=== PATIENT | female | born 1970 | race Caucasian/White ===

== ENCOUNTER 2018-12-27 23:02 | Emergency (ER) | payer BC, OTHER ==
[~2018-12-27] VITALS: Wt 85.0 kg
[~2018-12-27 23:02] MED LIST: HYDR-4011 PO
[2018-12-28] MEDS ORDERED: HYDROCODONE/APAP (5/325) TAB PO ONE (02:00)
--- NOTE | 2018-12-28 02:13 | ERD ---
ER Documentation Chief Complaint Chief Complaint states fell from bed to floor while sleeping, hit back head on wood, no ko HPI 48-year-old female presents with complaint of headache after hitting her head on a wood floor after she fell out of bed while sleeping. Patient denies any numbness or weakness. Patient states that she currently has a headache 10 out of 10 in intensity. In addition she states that her hips and thighs are hurting her as well. She is ambulatory. Patient denies any vision problems, altered mental status. ROS All systems reviewed and are negative except as per history of present illness. Medications Home Meds Active Scripts Hydrocodone/Acetaminophen ([place] 5-325 Tablet) 1 Each Tablet, 1 TAB PO Q6H PRN for PAIN, #10 TAB Prov:DAYNE COLLIER 12/28/18 Allergies Allergies: Coded Allergies: No Known Drug Allergies (Verified Allergy, Unknown, 12/27/18) PMhx/Soc Medical and Surgical Hx: pt denies Medical Hx, pt denies Surgical Hx Hx Alcohol Use: No Hx Substance Use: No Hx Tobacco Use: No Smoking Status: Never smoker FmHx Family History: No diabetes, No coronary disease, No other Physical Exam Vitals Vital Signs Date Temp Pulse Resp B/P (MAP) Pulse Ox O2 O2 Flow FiO2 Time Delivery Rate 12/28/18 98.0 60 18 110/62 99 05:09 (78) 12/27/18 98.2 81 18 138/79 98 23:24 (98) Physical Exam Const: No acute distress Head: Atraumatic Eyes: Normal Conjunctiva ENT: Normal External Ears, Nose and Mouth. Neck: Full range of motion. No meningismus. Resp: Clear to auscultation bilaterally Cardio: Regular rate and rhythm, no murmurs Abd: Soft, non tender, non distended. Normal bowel sounds Skin: No petechiae or rashes Back: No midline or flank tenderness Ext: No cyanosis, or edema Neur: Awake and alert. a&o x3 Psych: Normal Mood and Affect lower Extremity - bilateral: Skin: No laceration Compartments: Soft Motor: Full active range of motion hip/knee/ankle/foot Sensation: Intact to light touch FDWS/MF/LF/P surfaces. Bones: No bony deformity noted. Joints: No effusion or laxity Pulses/Perfusion: 2+ DP, Capillary refill < 2 seconds neuro: M/S: Alert and oriented Face: EOMI, face and pharynx with normal sensation and function Motor: Normal strength throughout Sensation: Normal sensation throughout Speech: Normal Cerebel: Normal coordination Normal gait Normal finger to nose DTR: 2+ and symmetric upper/lower extremities Results 24 hrs Laboratory Tests Test 12/28/18 02:05 POC Beta HCG, Qualitative NEGATIVE Current Medications Medications Dose Sig/Viviana Start Time Status Last (Trade) Ordered Route PRN Stop Time Admin Dose Reason Admin 1 tab ONCE ONCE 12/28/18 DC 12/28/18 Acetaminophen PO 02:00 02:22 / 12/28/18 02:01 Hydrocodone Bitart ([place] (5/325)) Procedures/MDM DIAGNOSTIC IMAGING REPORT Patient: IRENA BERNSTEIN : 1970 Age: 48 Sex: F MR #: [id number] DOS: 12/28/18 0149 Ordering MD: DAYNE COLLIER Location: [facility] Room/Bed: PROCEDURE: CT Brain without contrast. CLINICAL INDICATION: Trauma TECHNIQUE: CT scan of the brain was performed on a multidetector high-re solution CT scan. Axial imaging was obtained of the brain without contrast administration. Coronal and sagittal reformatted images were obtained from the axial source images. Standard CT scan of the head without contrast protocols were performed. The total exam CTDI equals 39.3 mGy and the total exam DLP equals 634.23 mGy-cm. One or more of the following dose reduction techniques were used: - Automated exposure control. - Adjustment of the mA and/or kV according to patient size. Use of iterative reconstruction technique. Dicom images are available COMPARISON: None. FINDINGS: The ventricular system and peripheral CSF spaces are unremarkable. No evidence of intracranial masses hemorrhages or midline shift. The rodriguez-white matter differentiation is unremarkable. The bones of the calvarium are intact. Visualized paranasal sinuses and mastoid are unremarkable. Soft tissues unremarkable. IMPRESSION: No evidence of intracranial masses hemorrhages or midline shift. RPTAT:AAJJ Physician Luis Alberto Date Time Electronically viewed and signed by Physician Luis Alberto on 12/28/2018 03:01 BM/ CC: DAYNE COLLIER [phone] MDM: Given patient's complaint of headache combined with fall of approximately 4 feet decision was made to do head CT. Results within normal limits. Patient's neuro exam was completely normal she is not complaining of any numbness, weakness, or any other focal neurological deficits, therefore I do not think a lumbar puncture is necessary at this time. I have low suspicion for int racranial hemorrhage, elevated intracranial pressure, intracranial mass, aneurysm, meningitis, malignant hypertension, giant cell arteritis, carotid dissection, intracranial abscess, cerebral venous thrombosis, CO2 poisoning, or other emergent causes of headache based on patients history and exam. In addition, patient complained of some muscular skeletal pain so x-rays were taken all results within normal limits as well. I have low suspicion for neurovascular compromise, compartment syndrome, fracture, osteomyelitis, septic joint, DVT, or other emergent condition. At this time, patient is stable for discharge and outpatient management. I have instructed the patient to follow-up with his/her primary care physician in 1-2 days. I have discussed with the patient the possibility of needing to see a specialist for further workup and imaging studies if symptoms persist. I have instructed the patient to promptly return to the ER for any new or worsening symptoms including but not limited to increased pain, fever, nausea, vomiting, weakness or LOC. The patient and/or family expressed understanding of and agreement with this plan. All questions were answered. Home care instructions were provided. Communication with patient both during the exam and instructions for discharge were performed with using a armament installer . Patient gave verbal confirmation to the practitioner, through the armament installer, that they understood everything that was being said to them. DISCLAIMER: Inadvertent spelling and grammatical errors are likely due to EHR/dictation software use and do not reflect on the overall quality of patient care. Also, please note that the electronic time recorded on this note does not necessarily reflect the actual time of the patient encounter. Departure Diagnosis: Primary Impression: Head injury Additional Impressions: Headache Hip pain Condition: Stable DAYNE COLLIER Dec 28, 2018 02:13
[2018-12-28 05:09] VITALS: BP 110/62; PULSE 60; RESP 18
== END 2018-12-28 05:10 | disposition home or self-care (01) ==
LOC: FTE 23:02
DX: S09.90XA Unspecified injury of head, initial encounter (principal); S79.911A Unspecified injury of right hip, initial encounter; S79.912A Unspecified injury of left hip, initial encounter; R51 Headache; W06.XXXA Fall from bed, initial encounter; Y92.89 Other specified places as the place of occurrence of the external cause
CPT/HCPCS: 70450; 72170; 73520; 73521; 73550; 73552; 81025